=== PATIENT | female | born 1980 | race Two or more races ===

== ENCOUNTER 2019-04-10 19:33 | Emergency (ER) | payer MEDICAID ==
[~2019-04-10] VITALS: Ht 152.4 cm; Wt 116.6 kg
[2019-04-10 20:49] LABS: Urine WBC None Seen /hpf (0 - 5)
[2019-04-10 21:08] LABS: Urine Bacteria NONE SEEN /hpf (None Seen); Urine Blood Negative /uL (Negative); Urine Specific Gravity 1.016 (1.001-1.035)
[2019-04-10 22:36] LABS: Basophils # (auto) 0.1 uL; Basophils % (auto) 0.9 % (0.0-2.0); Eosinophils # (auto) 0.1 uL; Eosinophils % (auto) 0.8 % (0.0-7.0); Hematocrit 43.7 % (36.0-46.0); Hemoglobin 14.3 g/dL (12.2-16.2); Lymphocytes # (auto) 2.1 uL; Lymphocytes % (auto) 14.5 % (10.0-50.0); Mean Corpuscular Hemoglobin 28.3 pg (28.0-32.0); Mean Corpuscular Hgb Conc. 32.7 g/dL (32.0-36.0); Mean Corpuscular Volume 86.5 fL (80.0-100.0); Monocytes % (auto) 6.8 % (0.0-12.0); Neutrophils # (auto) 11.1 uL; Platelet Count (auto) 308 10^3/uL (140-450); Red Blood Cells 5.06 10^6/uL (4.0-5.20); Red Cell Distribution Width 18.6 % (11.8-14.3); White Blood Cell 14.4 10^3/uL (4.4-10.8)
[2019-04-10 22:54] LABS: Albumin 3.8 g/dL (3.4-5.0); BUN/Creatinine Ratio 15.1; Potassium 3.8 mmol/L (3.5-5.1)
[2019-04-10 22:55] LABS: Bilirubin, Total 0.4 mg/dL (0.2-1.0); Total Protein 8.1 g/dL (6.4-8.2)
[2019-04-11] MEDS ORDERED: IOHEXOL 300 MG/ML 100ML BOTTLE IJ ONE (03:49)
[2019-04-11 06:17] VITALS: BP 118/75
== END 2019-04-11 06:37 | disposition home or self-care (01) ==
LOC: ER 19:33
DX: K57.32 Diverticulitis of large intestine without perforation or abscess without bleeding (principal)
CPT/HCPCS: 36415; 74177; 80053; 81001; 81025; 85025; 99284; Q9967

== ENCOUNTER 2020-02-20 13:40 | Emergency (ER) | payer MEDICAID ==
[~2020-02-20] VITALS: Ht 152.4 cm; Wt 121.6 kg
[2020-02-20 14:01] VITALS: BP 135/87
[2020-02-20 14:28] LABS: Urine WBC None Seen /hpf (0 - 5)
[2020-02-20 14:40] LABS: Urine Bacteria NONE SEEN /hpf (None Seen); Urine Blood 3+ /uL (Negative)
[2020-02-20 14:42] LABS: Urine Specific Gravity 1.024 (1.001-1.035)
[2020-02-20] MEDS ORDERED: KETOROLAC TROMETH 60MG/2ML VIAL IM ONE (15:15)
== END 2020-02-20 16:19 | disposition home or self-care (01) ==
LOC: ER 13:40
DX: N30.00 Acute cystitis without hematuria (principal); K80.80 Other cholelithiasis without obstruction; K76.0 Fatty (change of) liver, not elsewhere classified
CPT/HCPCS: 74176; 81001; 96372; 99284; J1885

== ENCOUNTER 2020-04-16 02:29 | Emergency (ER) | payer MEDICAID ==
[~2020-04-16] VITALS: Ht 152.4 cm; Wt 120.2 kg
[2020-04-16 05:24] LABS: Basophils # (auto) 0 10 ^3/uL (0-0.2); Basophils % (auto) 0.8 % (0.0-2.0); Eosinophils # (auto) 0.2 10 ^3/uL (0-0.8); Eosinophils % (auto) 4.5 % (0.0-7.0); Hematocrit 39.9 % (36.0-46.0); Hemoglobin 12.6 g/dL (12.2-16.2); Lymphocytes # (auto) 0.6 10 ^3/uL (0.4-5.4); Lymphocytes % (auto) 11.8 % (10.0-50.0); Mean Corpuscular Hemoglobin 26.2 pg (28.0-32.0); Mean Corpuscular Hgb Conc. 31.7 g/dL (32.0-36.0); Mean Corpuscular Volume 82.6 fL (80.0-100.0); Monocytes # (auto) 0.6 10 ^3/uL (0-1.3); Monocytes % (auto) 12.5 % (0.0-12.0); Neutrophils # (auto) 3.5 10 ^3/uL (1.6-8.6); Neutrophils % (auto) 70.4 % (37.0-80.0); Nucleated Red Blood Cells % 0.1 %; Platelet Count (auto) 250 10^3/uL (140-450); Red Blood Cells 4.83 10^6/uL (4.0-5.20); Red Cell Distribution Width 18.4 % (11.8-14.3); White Blood Cell 4.9 10^3/uL (4.4-10.8)
[2020-04-16 05:25] LABS: Albumin 3.7 g/dL (3.4-5.0); Calcium 8.9 mg/dL (8.5-10.1); Potassium 3.7 mmol/L (3.5-5.1)
[2020-04-16 05:28] LABS: BUN/Creatinine Ratio 17.7; Bilirubin, Total 0.4 mg/dL (0.2-1.0); Total Protein 7.6 g/dL (6.4-8.2)
[2020-04-16 05:40] LABS: Urine Bacteria NONE SEEN /hpf (None Seen); Urine Blood 2+ /uL (Negative); Urine Mucus FEW (None Seen); Urine Specific Gravity 1.024 (1.001-1.035); Urine WBC 2 /hpf (0 - 5)
[2020-04-16] MEDS ORDERED: KETOROLAC TROMETH 60MG/2ML VIAL IM ONE (06:30)
[2020-04-16 09:00] VITALS: BP 141/63
== END 2020-04-16 09:11 | disposition home or self-care (01) ==
LOC: ER 02:29
DX: B34.9 Viral infection, unspecified (principal); M79.18 Myalgia, other site; Z20.828 Contact with and (suspected) exposure to other viral communicable diseases
CPT/HCPCS: 36415; 71045; 80053; 81001; 82728; 85025; 86850; 86900; 86901; 87070; 87426; 87804; 87880; 96372; 99284; C9803; J1885; U0003

== ENCOUNTER 2020-04-17 17:35 | Emergency (ER) | payer MEDICAID ==
[~2020-04-17] VITALS: Ht 152.4 cm; Wt 120.2 kg
[2020-04-17] MEDS ORDERED: ONDANSETRON HCL 4 MG/2 ML VIAL IV ONE (18:15)
[2020-04-17] MEDS ORDERED: MORPHINE SULFATE 4 MG/ML SYR/VIAL IV ONE (18:15)
[2020-04-17] MEDS ORDERED: SODIUM CHLORIDE 0.9% 500 ML IVB ONE (18:15)
[2020-04-17 18:20] LABS: Basophils # (auto) 0 10 ^3/uL (0-0.2); Eosinophils # (auto) 0 10 ^3/uL (0-0.8); Hematocrit 40.1 % (36.0-46.0); Monocytes # (auto) 0.5 10 ^3/uL (0-1.3); Nucleated Red Blood Cells % 0.1 %
[2020-04-17 18:22] LABS: Eosinophils % (auto) 0.8 % (0.0-7.0); Hemoglobin 12.8 g/dL (12.2-16.2); Lymphocytes # (auto) 1.1 10 ^3/uL (0.4-5.4); Lymphocytes % (auto) 23.8 % (10.0-50.0); Mean Corpuscular Hemoglobin 26.6 pg (28.0-32.0); Mean Corpuscular Hgb Conc. 31.9 g/dL (32.0-36.0); Mean Corpuscular Volume 83.2 fL (80.0-100.0); Monocytes % (auto) 10.6 % (0.0-12.0); Neutrophils # (auto) 2.9 10 ^3/uL (1.6-8.6); Neutrophils % (auto) 63.8 % (37.0-80.0); Platelet Count (auto) 242 10^3/uL (140-450); Red Blood Cells 4.82 10^6/uL (4.0-5.20); Red Cell Distribution Width 18.8 % (11.8-14.3); White Blood Cell 4.6 10^3/uL (4.4-10.8)
[2020-04-17 18:43] LABS: Albumin 3.9 g/dL (3.4-5.0); Calcium 8.9 mg/dL (8.5-10.1); Potassium 3.5 mmol/L (3.5-5.1)
[2020-04-17 18:58] LABS: BUN/Creatinine Ratio 14.6; Bilirubin, Total 0.3 mg/dL (0.2-1.0); Total Protein 7.8 g/dL (6.4-8.2)
[2020-04-17 20:59] LABS: Urine Bacteria FEW /hpf (None Seen); Urine Blood 1+ /uL (Negative); Urine Mucus FEW (None Seen); Urine Specific Gravity 1.018 (1.001-1.035); Urine WBC 1 /hpf (0 - 5)
[2020-04-17 23:30] VITALS: BP 159/95
== END 2020-04-18 00:30 | disposition home or self-care (01) ==
LOC: ER 17:35
DX: U07.1 COVID-19 (principal); R10.84 Generalized abdominal pain
CPT/HCPCS: 36415; 74176; 80053; 81001; 82150; 82728; 83605; 83690; 84702; 85025; 86141; 87040; 96361; 96374; 96375; 99285; J2270; J2405; J7030

== ENCOUNTER 2020-04-23 19:51 | Inpatient (IN) | payer MEDICAID ==
[~2020-04-23] VITALS: Ht 152.4 cm; Wt 119.0 kg
[2020-04-23] MEDS ORDERED: AZITHROMYCIN 500MG/ 250ML 250 ML IV ONE (22:15)
[2020-04-23] MEDS ORDERED: ALBUTEROL SULF 2.5 MG/0.5ML(0.5%) NEB SOLN NEB ONE (22:15)
[2020-04-23] MEDS ORDERED: IPRATROPIUM BROM 0.5 MG/2.5ML INH SOL NEB ONE (22:15)
[2020-04-23 23:00] LABS: Basophils # (auto) 0 10 ^3/uL (0-0.2); Basophils % (auto) 0.1 % (0.0-2.0); Eosinophils # (auto) 0 10 ^3/uL (0-0.8); Hematocrit 41.2 % (36.0-46.0); Hemoglobin 13.1 g/dL (12.2-16.2); Lymphocytes # (auto) 0.4 10 ^3/uL (0.4-5.4); Lymphocytes % (auto) 4.5 % (10.0-50.0); Mean Corpuscular Hemoglobin 26.3 pg (28.0-32.0); Mean Corpuscular Hgb Conc. 31.8 g/dL (32.0-36.0); Mean Corpuscular Volume 82.6 fL (80.0-100.0); Monocytes # (auto) 0.3 10 ^3/uL (0-1.3); Neutrophils # (auto) 8.5 10 ^3/uL (1.6-8.6); Neutrophils % (auto) 92.4 % (37.0-80.0); Nucleated Red Blood Cells % 0.1 %; Platelet Count (auto) 284 10^3/uL (140-450); Red Blood Cells 4.98 10^6/uL (4.0-5.20); Red Cell Distribution Width 19.1 % (11.8-14.3); White Blood Cell 9.2 10^3/uL (4.4-10.8)
[2020-04-23 23:01] LABS: Urine Bacteria FEW /hpf (None Seen); Urine Blood 2+ /uL (Negative); Urine WBC 1 /hpf (0 - 5)
[2020-04-23 23:21] LABS: INR 1.05 (0.9-1.15); Partial Thromboplastin Time 34.3 sec (23.0-31.2)
[2020-04-23 23:36] LABS: Alanine Aminotransferase 30 U/L (13-56); Alkaline Phosphatase 84 U/L (45-117); Anion Gap 10 (5-15); Aspartate Aminotransferase 32 U/L (15-37); BUN/Creatinine Ratio 12.5; Bilirubin, Total 0.3 mg/dL (0.2-1.0); Blood Urea Nitrogen 10 mg/dL (7-18); Calcium 8.9 mg/dL (8.5-10.1); Carbon Dioxide 24 mmol/L (21-32); Chloride 100 mmol/L (98-107); GFR African American 102 mL/min; GFR Non-African American 84 mL/min; Glucose 161 mg/dL (74-106); Potassium 3.5 mmol/L (3.5-5.1); Sodium 134 mmol/L (136-145); Total Protein 7.6 g/dL (6.4-8.2)
[2020-04-24] MEDS ORDERED: DOCUSATE SOD 100 MG CAP PO PRN (00:15)
[2020-04-24] MEDS ORDERED: MORPHINE SULF INJ 2 MG/ML SYRINGE 1ML IV PRN (00:15)
[2020-04-24] MEDS ORDERED: NITROGLYCERIN 0.4 MG SL TAB SL PRN (00:15)
[2020-04-24 01:29] VITALS: BP 132/88
[2020-04-24] MEDS: ALBUTEROL SULF HFA 90MCG INH 200DOSE IN SCH ×3 (06:15→22:14)
[2020-04-24] MEDS: SODIUM CHLOR 0.9% PF (SALINE LOCK) 10ML VIAL/SYR IV SCH ×3 (08:30→22:30)
[2020-04-24] MEDS: DexAMETHasone SOD PHOS 10MG/1ML VIAL INJ IV SCH (09:55)
[2020-04-24] MEDS: PANTOPRAZOLE 40 MG/10 ML VIAL INJ IV SCH (09:55)
[2020-04-24] MEDS: ASCORBIC ACID 1,000 MG TAB PO SCH (09:56)
[2020-04-24] MEDS: ZINC SULFATE 220mg CAP or TAB PO SCH (09:56)
[2020-04-24] MEDS: CHOLECALCIFEROL (VITD3) 2,000 UNIT CAP PO SCH (09:56)
[2020-04-24] MEDS: MULTIPLE VITAMIN TAB PO SCH (09:56)
[2020-04-24] MEDS: DOXYCYCLINE 100MG/250ML 250 ML IV SCH ×2 (09:56→23:06)
[2020-04-24] MEDS ORDERED: ENOXAPARIN SOD 40 MG/0.4 ML SYRINGE SC SCH (10:00)
[2020-04-24] MEDS: BUDESONIDE (INHALATION) 180 MCG IH IN SCH ×2 (10:09→22:14)
[2020-04-24] MEDS ORDERED: DEXTROSE (50%) 50ML SYRG IV PRN (10:15)
[2020-04-24] MEDS: ENOXAPARIN SOD 120 MG/0.8 ML SYRINGE SC SCH ×2 (10:56→22:59)
[2020-04-24 11:08] LABS: Basophils # (auto) 0 10 ^3/uL (0-0.2); Eosinophils # (auto) 0 10 ^3/uL (0-0.8); Lymphocytes # (auto) 0.8 10 ^3/uL (0.4-5.4); Mean Corpuscular Hemoglobin 26.1 pg (28.0-32.0); Monocytes # (auto) 0.5 10 ^3/uL (0-1.3); Monocytes % (auto) 4.5 % (0.0-12.0); Red Cell Distribution Width 18.6 % (11.8-14.3)
[2020-04-24 11:09] LABS: Hematocrit 40.8 % (36.0-46.0); Lymphocytes % (auto) 7.6 % (10.0-50.0); Mean Corpuscular Volume 81.7 fL (80.0-100.0); Neutrophils # (auto) 9.7 10 ^3/uL (1.6-8.6); Neutrophils % (auto) 87.9 % (37.0-80.0); Platelet Count (auto) 302 10^3/uL (140-450)
[2020-04-24 11:16] LABS: Alanine Aminotransferase 30 U/L (13-56); Albumin 2.9 g/dL (3.4-5.0); Anion Gap 7 (5-15); Aspartate Aminotransferase 30 U/L (15-37); Blood Urea Nitrogen 18 mg/dL (7-18); Calcium 9.2 mg/dL (8.5-10.1); Carbon Dioxide 27 mmol/L (21-32); Chloride 102 mmol/L (98-107); GFR African American 89 mL/min; GFR Non-African American 73 mL/min; Glucose 144 mg/dL (74-106); Magnesium 2.1 mg/dL (1.6-2.6); Potassium 3.9 mmol/L (3.5-5.1); Sodium 136 mmol/L (136-145); Total Protein 7.6 g/dL (6.4-8.2)
[2020-04-24 11:31] LABS: Alkaline Phosphatase 87 U/L (45-117); Bilirubin, Total 0.4 mg/dL (0.2-1.0); Lactate Dehydrogenase 370 U/L (84-246)
[2020-04-24 11:44] LABS: CRP High Sensitivity > 19 mg/dL (< 0.3)
[2020-04-24] MEDS: ACCU-CHEK COMFORT CURVE STRIP VI SCH ×3 (12:04→22:59)
[2020-04-24] MEDS: InsuLIN REG 1unit/0.01ml Soln (100units/ml) SC SCH ×3 (12:17→23:00)
[2020-04-24 21:36] VITALS: BP 116/74
[2020-04-24 22:00] VITALS: BP 133/88
[2020-04-24 23:00] VITALS: BP 135/86
[2020-04-25] MEDS: ACETAMINOPHEN 500 MG TAB PO PRN (01:00)
[2020-04-25] MEDS: ALBUTEROL SULF HFA 90MCG INH 200DOSE IN SCH ×3 (06:00→22:00)
[2020-04-25] MEDS: SODIUM CHLOR 0.9% PF (SALINE LOCK) 10ML VIAL/SYR IV SCH ×3 (06:54→22:30)
[2020-04-25] MEDS: InsuLIN REG 1unit/0.01ml Soln (100units/ml) SC SCH ×4 (07:00→22:31)
[2020-04-25] MEDS ORDERED: AZITHROMYCIN 500MG/ 250ML 250 ML IV ONE ×2 (07:36→07:45)
[2020-04-25] MEDS: ACCU-CHEK COMFORT CURVE STRIP VI SCH ×4 (07:38→22:22)
[2020-04-25] MEDS: ZINC SULFATE 220mg CAP or TAB PO SCH (07:56)
[2020-04-25] MEDS: PANTOPRAZOLE 40 MG/10 ML VIAL INJ IV SCH (07:56)
[2020-04-25] MEDS: DOXYCYCLINE 100MG/250ML 250 ML IV SCH ×3 (07:56→22:54)
[2020-04-25] MEDS: MULTIPLE VITAMIN TAB PO SCH (07:56)
[2020-04-25] MEDS: DexAMETHasone SOD PHOS 10MG/1ML VIAL INJ IV SCH (07:56)
[2020-04-25] MEDS: ASCORBIC ACID 1,000 MG TAB PO SCH (07:56)
[2020-04-25] MEDS: CHOLECALCIFEROL (VITD3) 2,000 UNIT CAP PO SCH (07:56)
[2020-04-25] MEDS: ENOXAPARIN SOD 120 MG/0.8 ML SYRINGE SC SCH ×2 (07:57→22:31)
[2020-04-25 09:17] LABS: Basophils # (auto) 0 10 ^3/uL (0-0.2); Eosinophils # (auto) 0 10 ^3/uL (0-0.8); Hemoglobin 13.3 g/dL (12.2-16.2); Lymphocytes # (auto) 0.6 10 ^3/uL (0.4-5.4); Mean Corpuscular Hemoglobin 26.5 pg (28.0-32.0); Red Cell Distribution Width 18.7 % (11.8-14.3)
[2020-04-25 09:18] LABS: Basophils % (auto) 0.1 % (0.0-2.0); Lymphocytes % (auto) 4.8 % (10.0-50.0); Mean Corpuscular Hgb Conc. 32.4 g/dL (32.0-36.0); Monocytes # (auto) 0.5 10 ^3/uL (0-1.3); Monocytes % (auto) 3.6 % (0.0-12.0); Neutrophils # (auto) 11.7 10 ^3/uL (1.6-8.6); Neutrophils % (auto) 91.5 % (37.0-80.0); Platelet Count (auto) 325 10^3/uL (140-450); White Blood Cell 12.8 10^3/uL (4.4-10.8)
[2020-04-25] MEDS ORDERED: LORazepam 2MG/ML-1ML VIAL IV ONE (09:30)
[2020-04-25 09:46] LABS: Albumin 2.7 g/dL (3.4-5.0); BUN/Creatinine Ratio 20.5; Bilirubin, Total 0.6 mg/dL (0.2-1.0); Potassium 3.6 mmol/L (3.5-5.1); Total Protein 7.6 g/dL (6.4-8.2)
[2020-04-25] MEDS: BUDESONIDE (INHALATION) 180 MCG IH IN SCH ×2 (10:00→22:00)
[2020-04-25] MEDS ORDERED: REMDESIVIR 200 MG in NS 210ml LOADING DOSE ADULT IV ONE ×2 (10:00→17:00)
[2020-04-25] MEDS: ALPRAZolam 0.5 MG TAB PO PRN (13:26)
[2020-04-25 15:25] VITALS: BP 116/71
[2020-04-25 18:50] VITALS: BP 106/63
[2020-04-25 22:30] VITALS: BP 107/59
[2020-04-26] VITALS (11 sets, daily range): BP systolic 90–144; BP diastolic 54–76
[2020-04-26] MEDS: ALPRAZolam 0.5 MG TAB PO PRN ×3 (01:21→20:33)
[2020-04-26] MEDS: ONDANSETRON HCL 4 MG/2 ML VIAL IV PRN (01:22)
[2020-04-26 05:04] LABS: Potassium 3.6 mmol/L (3.5-5.1)
[2020-04-26 05:12] LABS: BUN/Creatinine Ratio 33.3; Calcium 8.8 mg/dL (8.5-10.1)
[2020-04-26] MEDS: FUROSEMIDE 40 MG/4 ML VIAL IV SCH ×2 (06:01→17:13)
[2020-04-26] MEDS: SODIUM CHLOR 0.9% PF (SALINE LOCK) 10ML VIAL/SYR IV SCH ×3 (06:01→20:30)
[2020-04-26] MEDS: ACCU-CHEK COMFORT CURVE STRIP VI SCH ×4 (06:01→20:32)
[2020-04-26] MEDS: InsuLIN REG 1unit/0.01ml Soln (100units/ml) SC SCH ×4 (06:01→20:32)
[2020-04-26] MEDS: ALBUTEROL SULF HFA 90MCG INH 200DOSE IN SCH ×3 (06:11→22:15)
[2020-04-26] MEDS: BUDESONIDE (INHALATION) 180 MCG IH IN SCH ×2 (06:11→22:16)
[2020-04-26] MEDS: DOXYCYCLINE 100MG/250ML 250 ML IV SCH ×2 (09:38→20:32)
[2020-04-26] MEDS: ZINC SULFATE 220mg CAP or TAB PO SCH (09:39)
[2020-04-26] MEDS: MULTIPLE VITAMIN TAB PO SCH (09:39)
[2020-04-26] MEDS: CHOLECALCIFEROL (VITD3) 2,000 UNIT CAP PO SCH (09:39)
[2020-04-26] MEDS: DexAMETHasone SOD PHOS 10MG/1ML VIAL INJ IV SCH (09:40)
[2020-04-26] MEDS: ASCORBIC ACID 1,000 MG TAB PO SCH (09:40)
[2020-04-26] MEDS: ENOXAPARIN SOD 120 MG/0.8 ML SYRINGE SC SCH ×2 (09:40→20:32)
[2020-04-26] MEDS: PANTOPRAZOLE 40 MG/10 ML VIAL INJ IV SCH (09:41)
[2020-04-26] MEDS: ACETAMINOPHEN 500 MG TAB PO PRN (15:09)
[2020-04-26] MEDS: REMDESIVIR 100mg in NS 230ml DAILYx4DAYS (NO VENT) IV SCH (17:00)
[2020-04-26] MEDS ORDERED: REMDESIVIR 100mg in NS 230ml DAILYx4DAYS (NO VENT) IV SCH (17:00)
[2020-04-27] VITALS (12 sets, daily range): BP systolic 100–115; BP diastolic 50–74
[2020-04-27] MEDS: ACCU-CHEK COMFORT CURVE STRIP VI SCH ×4 (05:10→21:37)
[2020-04-27] MEDS: SODIUM CHLOR 0.9% PF (SALINE LOCK) 10ML VIAL/SYR IV SCH ×3 (05:10→21:36)
[2020-04-27] MEDS: InsuLIN REG 1unit/0.01ml Soln (100units/ml) SC SCH ×4 (05:10→21:37)
[2020-04-27] MEDS: FUROSEMIDE 40 MG/4 ML VIAL IV SCH ×2 (05:11→18:16)
[2020-04-27 06:08] LABS: Potassium 3.4 mmol/L (3.5-5.1)
[2020-04-27 06:16] LABS: Albumin 2.5 g/dL (3.4-5.0); BUN/Creatinine Ratio 37.7; Bilirubin, Total 0.4 mg/dL (0.2-1.0); Calcium 8.8 mg/dL (8.5-10.1)
[2020-04-27] MEDS: BUDESONIDE (INHALATION) 180 MCG IH IN SCH ×2 (06:17→19:03)
[2020-04-27] MEDS: ALBUTEROL SULF HFA 90MCG INH 200DOSE IN SCH ×3 (06:17→19:03)
[2020-04-27] MEDS: DexAMETHasone SOD PHOS 10MG/1ML VIAL INJ IV SCH (09:23)
[2020-04-27] MEDS: MULTIPLE VITAMIN TAB PO SCH (09:23)
[2020-04-27] MEDS: PANTOPRAZOLE 40 MG/10 ML VIAL INJ IV SCH (09:23)
[2020-04-27] MEDS: ZINC SULFATE 220mg CAP or TAB PO SCH (09:23)
[2020-04-27] MEDS: ENOXAPARIN SOD 120 MG/0.8 ML SYRINGE SC SCH ×2 (09:24→21:37)
[2020-04-27] MEDS: ASCORBIC ACID 1,000 MG TAB PO SCH (09:24)
[2020-04-27] MEDS: CHOLECALCIFEROL (VITD3) 2,000 UNIT CAP PO SCH (09:24)
[2020-04-27] MEDS: DOXYCYCLINE 100MG/250ML 250 ML IV SCH ×2 (10:10→21:37)
[2020-04-27] MEDS ORDERED: POTASSIUM CHL 20MEQ/100ML 100 ML IV ONE (15:30)
[2020-04-27] MEDS: REMDESIVIR 100mg in NS 230ml DAILYx4DAYS (NO VENT) IV SCH (16:42)
[2020-04-28] VITALS (12 sets, daily range): BP systolic 96–116; BP diastolic 50–71
[2020-04-28 04:04] LABS: Basophils # (auto) 0 10 ^3/uL (0-0.2); Eosinophils # (auto) 0 10 ^3/uL (0-0.8); Lymphocytes # (auto) 0.9 10 ^3/uL (0.4-5.4); Lymphocytes % (auto) 8.7 % (10.0-50.0); Mean Corpuscular Hgb Conc. 31.1 g/dL (32.0-36.0)
[2020-04-28 04:06] LABS: Basophils % (auto) 0.1 % (0.0-2.0); Hematocrit 40.8 % (36.0-46.0); Hemoglobin 12.7 g/dL (12.2-16.2); Mean Corpuscular Hemoglobin 25.9 pg (28.0-32.0); Mean Corpuscular Volume 83.1 fL (80.0-100.0); Monocytes # (auto) 0.8 10 ^3/uL (0-1.3); Monocytes % (auto) 7.9 % (0.0-12.0); Neutrophils # (auto) 8.5 10 ^3/uL (1.6-8.6); Neutrophils % (auto) 83.3 % (37.0-80.0); Platelet Count (auto) 374 10^3/uL (140-450); Red Blood Cells 4.91 10^6/uL (4.0-5.20); Red Cell Distribution Width 18.8 % (11.8-14.3); White Blood Cell 10.2 10^3/uL (4.4-10.8)
[2020-04-28 05:21] LABS: Albumin 2.5 g/dL (3.4-5.0); BUN/Creatinine Ratio 37.5; Bilirubin, Total 0.4 mg/dL (0.2-1.0); CRP High Sensitivity 7.82 mg/dL (< 0.3); Calcium 8.7 mg/dL (8.5-10.1); Potassium 3.4 mmol/L (3.5-5.1); Total Protein 7.3 g/dL (6.4-8.2)
[2020-04-28] MEDS: ALBUTEROL SULF HFA 90MCG INH 200DOSE IN SCH ×3 (05:39→19:48)
[2020-04-28] MEDS: BUDESONIDE (INHALATION) 180 MCG IH IN SCH ×2 (05:39→19:48)
[2020-04-28] MEDS: SODIUM CHLOR 0.9% PF (SALINE LOCK) 10ML VIAL/SYR IV SCH ×3 (06:21→21:24)
[2020-04-28] MEDS: InsuLIN REG 1unit/0.01ml Soln (100units/ml) SC SCH ×4 (06:22→22:06)
[2020-04-28] MEDS: ACCU-CHEK COMFORT CURVE STRIP VI SCH ×4 (06:22→21:24)
[2020-04-28] MEDS ORDERED: POTASSIUM CHL 20 Meq TABLET PO ONE (09:45)
[2020-04-28] MEDS: PANTOPRAZOLE 40 MG/10 ML VIAL INJ IV SCH (10:54)
[2020-04-28] MEDS: DOXYCYCLINE 100MG/250ML 250 ML IV SCH ×2 (10:55→21:24)
[2020-04-28] MEDS: DexAMETHasone SOD PHOS 10MG/1ML VIAL INJ IV SCH (10:55)
[2020-04-28] MEDS: ASCORBIC ACID 1,000 MG TAB PO SCH (11:37)
[2020-04-28] MEDS: CHOLECALCIFEROL (VITD3) 2,000 UNIT CAP PO SCH (11:37)
[2020-04-28] MEDS: ZINC SULFATE 220mg CAP or TAB PO SCH (11:37)
[2020-04-28] MEDS: MULTIPLE VITAMIN TAB PO SCH (11:38)
[2020-04-28] MEDS: ENOXAPARIN SOD 120 MG/0.8 ML SYRINGE SC SCH ×2 (11:38→21:24)
[2020-04-28] MEDS: ALPRAZolam 0.5 MG TAB PO PRN (11:42)
[2020-04-28] MEDS: Ensure HIGH Protein Chocolate 8oz Bottle PO SCH ×2 (12:00→18:00)
[2020-04-28] MEDS: REMDESIVIR 100mg in NS 230ml DAILYx4DAYS (NO VENT) IV SCH (17:00)
[2020-04-28] MEDS: POTASSIUM CHL 20MEQ/100ML 100 ML IV SCH ×2 (18:43→20:20)
[2020-04-29] VITALS (15 sets, daily range): BP systolic 94–114; BP diastolic 52–72
[2020-04-29] MEDS: ALPRAZolam 0.5 MG TAB PO PRN (00:53)
[2020-04-29] MEDS: ONDANSETRON HCL 4 MG/2 ML VIAL IV PRN (00:54)
[2020-04-29 03:27] LABS: Basophils # (auto) 0 10 ^3/uL (0-0.2); Eosinophils # (auto) 0 10 ^3/uL (0-0.8); Eosinophils % (auto) 0.1 % (0.0-7.0); Hemoglobin 13.3 g/dL (12.2-16.2); Lymphocytes # (auto) 0.8 10 ^3/uL (0.4-5.4); Monocytes # (auto) 0.8 10 ^3/uL (0-1.3)
[2020-04-29 03:29] LABS: Hematocrit 42.6 % (36.0-46.0); Lymphocytes % (auto) 7.3 % (10.0-50.0); Mean Corpuscular Hemoglobin 25.8 pg (28.0-32.0); Mean Corpuscular Hgb Conc. 31.2 g/dL (32.0-36.0); Mean Corpuscular Volume 82.5 fL (80.0-100.0); Monocytes % (auto) 7.2 % (0.0-12.0); Neutrophils # (auto) 9.8 10 ^3/uL (1.6-8.6); Neutrophils % (auto) 85.4 % (37.0-80.0); Platelet Count (auto) 378 10^3/uL (140-450); Red Blood Cells 5.17 10^6/uL (4.0-5.20); Red Cell Distribution Width 18.3 % (11.8-14.3); White Blood Cell 11.5 10^3/uL (4.4-10.8)
[2020-04-29 03:43] LABS: Albumin 2.5 g/dL (3.4-5.0); Calcium 8.9 mg/dL (8.5-10.1); Potassium 4.2 mmol/L (3.5-5.1)
[2020-04-29 03:47] LABS: BUN/Creatinine Ratio 30.9; Bilirubin, Total 0.5 mg/dL (0.2-1.0); Total Protein 7.1 g/dL (6.4-8.2)
[2020-04-29] MEDS: SODIUM CHLOR 0.9% PF (SALINE LOCK) 10ML VIAL/SYR IV SCH ×3 (05:28→22:02)
[2020-04-29] MEDS: ALBUTEROL SULF HFA 90MCG INH 200DOSE IN SCH ×3 (06:00→22:12)
[2020-04-29] MEDS: ACCU-CHEK COMFORT CURVE STRIP VI SCH ×4 (06:07→22:03)
[2020-04-29] MEDS: InsuLIN REG 1unit/0.01ml Soln (100units/ml) SC SCH ×4 (06:07→22:04)
[2020-04-29] MEDS: Ensure HIGH Protein Chocolate 8oz Bottle PO SCH ×3 (08:00→18:00)
[2020-04-29] MEDS ORDERED: guaiFENesin-DM 100/10mg/5ml SYR PO PRN (09:45)
[2020-04-29] MEDS: BUDESONIDE (INHALATION) 180 MCG IH IN SCH ×2 (10:00→22:12)
[2020-04-29] MEDS: ZINC SULFATE 220mg CAP or TAB PO SCH (10:40)
[2020-04-29] MEDS: ENOXAPARIN SOD 120 MG/0.8 ML SYRINGE SC SCH ×2 (10:40→22:03)
[2020-04-29] MEDS: PANTOPRAZOLE 40 MG/10 ML VIAL INJ IV SCH (10:40)
[2020-04-29] MEDS: ASCORBIC ACID 1,000 MG TAB PO SCH (10:40)
[2020-04-29] MEDS: CHOLECALCIFEROL (VITD3) 2,000 UNIT CAP PO SCH (10:40)
[2020-04-29] MEDS: DexAMETHasone SOD PHOS 10MG/1ML VIAL INJ IV SCH (10:40)
[2020-04-29] MEDS: MULTIPLE VITAMIN TAB PO SCH (10:40)
[2020-04-29 11:23] LABS: Magnesium 2.7 mg/dL (1.6-2.6); Phosphorus 4.2 mg/dL (2.5-4.90)
[2020-04-29 11:32] LABS: CRP High Sensitivity 10.2 mg/dL (< 0.3)
[2020-04-29] MEDS: REMDESIVIR 100mg in NS 230ml DAILYx4DAYS (NO VENT) IV SCH (16:34)
[2020-04-30] VITALS (12 sets, daily range): BP systolic 98–119; BP diastolic 51–75
[2020-04-30] MEDS: ACCU-CHEK COMFORT CURVE STRIP VI SCH ×4 (05:52→22:22)
[2020-04-30] MEDS: SODIUM CHLOR 0.9% PF (SALINE LOCK) 10ML VIAL/SYR IV SCH ×3 (05:52→22:22)
[2020-04-30] MEDS: InsuLIN REG 1unit/0.01ml Soln (100units/ml) SC SCH ×4 (05:52→22:23)
[2020-04-30] MEDS: ALBUTEROL SULF 2.5 MG/0.5ML(0.5%) NEB SOLN NEB SCH ×3 (06:00→22:40)
[2020-04-30] MEDS: BUDESONIDE (INHALATION) 0.5 MG/2 ML NEB NEB SCH ×2 (07:54→22:40)
[2020-04-30] MEDS: Ensure HIGH Protein Chocolate 8oz Bottle PO SCH ×3 (08:00→17:35)
[2020-04-30] MEDS: DexAMETHasone SOD PHOS 10MG/1ML VIAL INJ IV SCH (10:30)
[2020-04-30] MEDS: MULTIPLE VITAMIN TAB PO SCH (10:31)
[2020-04-30] MEDS: PANTOPRAZOLE 40 MG/10 ML VIAL INJ IV SCH (10:31)
[2020-04-30] MEDS: ZINC SULFATE 220mg CAP or TAB PO SCH (10:31)
[2020-04-30] MEDS: CHOLECALCIFEROL (VITD3) 2,000 UNIT CAP PO SCH (10:32)
[2020-04-30] MEDS: ENOXAPARIN SOD 120 MG/0.8 ML SYRINGE SC SCH ×2 (10:32→22:22)
[2020-04-30] MEDS: ASCORBIC ACID 1,000 MG TAB PO SCH (10:32)
[2020-04-30 10:40] LABS: Basophils # (auto) 0 10 ^3/uL (0-0.2); Eosinophils # (auto) 0 10 ^3/uL (0-0.8); Eosinophils % (auto) 0.3 % (0.0-7.0); Hematocrit 40.8 % (36.0-46.0); Hemoglobin 12.6 g/dL (12.2-16.2); Lymphocytes # (auto) 0.8 10 ^3/uL (0.4-5.4); Lymphocytes % (auto) 5.8 % (10.0-50.0); Mean Corpuscular Hemoglobin 25.7 pg (28.0-32.0); Mean Corpuscular Hgb Conc. 30.9 g/dL (32.0-36.0); Mean Corpuscular Volume 83.3 fL (80.0-100.0); Monocytes # (auto) 0.6 10 ^3/uL (0-1.3); Neutrophils # (auto) 12.6 10 ^3/uL (1.6-8.6); Neutrophils % (auto) 89.9 % (37.0-80.0); Platelet Count (auto) 326 10^3/uL (140-450); White Blood Cell 14.1 10^3/uL (4.4-10.8)
[2020-04-30 11:09] LABS: Albumin 2.3 g/dL (3.4-5.0); Calcium 8.9 mg/dL (8.5-10.1)
[2020-04-30 11:32] LABS: BUN/Creatinine Ratio 33.3; Bilirubin, Total 0.6 mg/dL (0.2-1.0); CRP High Sensitivity 14.3 mg/dL (< 0.3)
[2020-04-30] MEDS: ALPRAZolam 0.5 MG TAB PO PRN (14:44)
[2020-05-01] VITALS (12 sets, daily range): BP systolic 95–110; BP diastolic 41–69
[2020-05-01] MEDS: ALPRAZolam 0.5 MG TAB PO PRN ×2 (03:28→23:34)
[2020-05-01] MEDS: SODIUM CHLOR 0.9% PF (SALINE LOCK) 10ML VIAL/SYR IV SCH ×3 (05:38→21:50)
[2020-05-01] MEDS: ACCU-CHEK COMFORT CURVE STRIP VI SCH ×4 (06:33→22:38)
[2020-05-01] MEDS: InsuLIN REG 1unit/0.01ml Soln (100units/ml) SC SCH ×4 (06:34→22:00)
[2020-05-01] MEDS: BUDESONIDE (INHALATION) 0.5 MG/2 ML NEB NEB SCH ×2 (07:12→22:28)
[2020-05-01] MEDS: ALBUTEROL SULF 2.5 MG/0.5ML(0.5%) NEB SOLN NEB SCH ×3 (07:13→22:28)
[2020-05-01] MEDS: Ensure HIGH Protein Chocolate 8oz Bottle PO SCH ×3 (08:30→18:00)
[2020-05-01] MEDS: ACETAMINOPHEN 500 MG TAB PO PRN (08:38)
[2020-05-01] MEDS: ASCORBIC ACID 1,000 MG TAB PO SCH (10:30)
[2020-05-01] MEDS: ENOXAPARIN SOD 120 MG/0.8 ML SYRINGE SC SCH ×2 (10:30→21:51)
[2020-05-01] MEDS: ZINC SULFATE 220mg CAP or TAB PO SCH (10:30)
[2020-05-01] MEDS: DexAMETHasone SOD PHOS 10MG/1ML VIAL INJ IV SCH (10:30)
[2020-05-01] MEDS: PANTOPRAZOLE 40 MG/10 ML VIAL INJ IV SCH (10:30)
[2020-05-01] MEDS: MULTIPLE VITAMIN TAB PO SCH (10:30)
[2020-05-01] MEDS: CHOLECALCIFEROL (VITD3) 2,000 UNIT CAP PO SCH (10:30)
[2020-05-02] VITALS (12 sets, daily range): BP systolic 95–118; BP diastolic 48–70
[2020-05-02 04:27] LABS: Basophils # (auto) 0 10 ^3/uL (0-0.2); Basophils % (auto) 0.1 % (0.0-2.0); Eosinophils # (auto) 0.1 10 ^3/uL (0-0.8); Eosinophils % (auto) 0.5 % (0.0-7.0); Hematocrit 40.7 % (36.0-46.0); Hemoglobin 12.6 g/dL (12.2-16.2); Lymphocytes # (auto) 0.6 10 ^3/uL (0.4-5.4); Lymphocytes % (auto) 4.6 % (10.0-50.0); Mean Corpuscular Hemoglobin 25.9 pg (28.0-32.0); Mean Corpuscular Hgb Conc. 31.1 g/dL (32.0-36.0); Mean Corpuscular Volume 83.4 fL (80.0-100.0); Monocytes # (auto) 0.3 10 ^3/uL (0-1.3); Monocytes % (auto) 2.6 % (0.0-12.0); Neutrophils # (auto) 11.4 10 ^3/uL (1.6-8.6); Neutrophils % (auto) 92.2 % (37.0-80.0); Nucleated Red Blood Cells % 0.1 %; Platelet Count (auto) 333 10^3/uL (140-450); Red Blood Cells 4.87 10^6/uL (4.0-5.20); Red Cell Distribution Width 18.9 % (11.8-14.3); White Blood Cell 12.4 10^3/uL (4.4-10.8)
[2020-05-02 04:48] LABS: Albumin 2.2 g/dL (3.4-5.0); BUN/Creatinine Ratio 27.4; Calcium 8.9 mg/dL (8.5-10.1); Magnesium 2.8 mg/dL (1.6-2.6); Potassium 4.3 mmol/L (3.5-5.1)
[2020-05-02 05:00] LABS: Bilirubin, Total 0.5 mg/dL (0.2-1.0); CRP High Sensitivity 16.6 mg/dL (< 0.3); Total Protein 7.1 g/dL (6.4-8.2)
[2020-05-02] MEDS: SODIUM CHLOR 0.9% PF (SALINE LOCK) 10ML VIAL/SYR IV SCH ×3 (05:56→22:02)
[2020-05-02] MEDS: ALBUTEROL SULF 2.5 MG/0.5ML(0.5%) NEB SOLN NEB SCH ×3 (06:06→21:00)
[2020-05-02] MEDS: BUDESONIDE (INHALATION) 0.5 MG/2 ML NEB NEB SCH ×2 (06:06→21:00)
[2020-05-02] MEDS: InsuLIN REG 1unit/0.01ml Soln (100units/ml) SC SCH ×3 (07:00→17:00)
[2020-05-02] MEDS: ACCU-CHEK COMFORT CURVE STRIP VI SCH ×3 (07:13→17:00)
[2020-05-02] MEDS: Ensure HIGH Protein Chocolate 8oz Bottle PO SCH ×3 (07:54→17:51)
[2020-05-02] MEDS: DexAMETHasone SOD PHOS 10MG/1ML VIAL INJ IV SCH (09:23)
[2020-05-02] MEDS: ALPRAZolam 0.5 MG TAB PO PRN (09:23)
[2020-05-02] MEDS: ZINC SULFATE 220mg CAP or TAB PO SCH (09:24)
[2020-05-02] MEDS: MULTIPLE VITAMIN TAB PO SCH (09:24)
[2020-05-02] MEDS: CHOLECALCIFEROL (VITD3) 2,000 UNIT CAP PO SCH (09:24)
[2020-05-02] MEDS: ASCORBIC ACID 1,000 MG TAB PO SCH (09:24)
[2020-05-02] MEDS: ENOXAPARIN SOD 120 MG/0.8 ML SYRINGE SC SCH ×2 (09:24→22:02)
[2020-05-02] MEDS: PANTOPRAZOLE 40 MG/10 ML VIAL INJ IV SCH (09:24)
[2020-05-02] MEDS ORDERED: PPN PER PHARMACY 0 ML IV SCH (19:15)
[2020-05-02] MEDS ORDERED: DEXTROSE (50%) 50ML SYRG IV SCH (20:00)
[2020-05-02] MEDS ORDERED: AMINO ACID INFUSION IN D5W 2,000 ML IV NR (20:00)
[2020-05-03] VITALS (10 sets, daily range): BP systolic 96–115; BP diastolic 63–76
[2020-05-03] MEDS: ACCU-CHEK COMFORT CURVE STRIP VI SCH ×5 (00:15→23:57)
[2020-05-03] MEDS: InsuLIN REG 1unit/0.01ml Soln (100units/ml) SC SCH ×5 (00:16→23:57)
[2020-05-03 04:53] LABS: Basophils # (auto) 0 10 ^3/uL (0-0.2); Eosinophils # (auto) 0 10 ^3/uL (0-0.8); Eosinophils % (auto) 0.4 % (0.0-7.0); Hematocrit 43.4 % (36.0-46.0); Hemoglobin 13.4 g/dL (12.2-16.2); Lymphocytes # (auto) 0.6 10 ^3/uL (0.4-5.4); Lymphocytes % (auto) 5.1 % (10.0-50.0); Mean Corpuscular Hemoglobin 25.8 pg (28.0-32.0); Mean Corpuscular Hgb Conc. 30.9 g/dL (32.0-36.0); Mean Corpuscular Volume 83.5 fL (80.0-100.0); Monocytes # (auto) 0.3 10 ^3/uL (0-1.3); Monocytes % (auto) 2.5 % (0.0-12.0); Neutrophils # (auto) 10.6 10 ^3/uL (1.6-8.6); Nucleated Red Blood Cells % 0.1 %; Platelet Count (auto) 313 10^3/uL (140-450); Red Cell Distribution Width 19.1 % (11.8-14.3); White Blood Cell 11.5 10^3/uL (4.4-10.8)
[2020-05-03 05:20] LABS: Potassium 4.5 mmol/L (3.5-5.1)
[2020-05-03 05:35] LABS: Albumin 2.3 g/dL (3.4-5.0); BUN/Creatinine Ratio 36.2; Bilirubin, Total 0.4 mg/dL (0.2-1.0); CRP High Sensitivity 14.2 mg/dL (< 0.3); Calcium 8.9 mg/dL (8.5-10.1); Magnesium 3.1 mg/dL (1.6-2.6); Phosphorus 3.5 mg/dL (2.5-4.90); Pre Albumin 17.8 mg/dL (20.0-40.0); Total Protein 7.2 g/dL (6.4-8.2)
[2020-05-03] MEDS: BUDESONIDE (INHALATION) 0.5 MG/2 ML NEB NEB SCH ×2 (06:37→22:02)
[2020-05-03] MEDS: ALBUTEROL SULF 2.5 MG/0.5ML(0.5%) NEB SOLN NEB SCH ×3 (06:37→22:02)
[2020-05-03] MEDS: SODIUM CHLOR 0.9% PF (SALINE LOCK) 10ML VIAL/SYR IV SCH ×3 (06:51→22:08)
[2020-05-03] MEDS: Ensure HIGH Protein Chocolate 8oz Bottle PO SCH (08:00)
[2020-05-03] MEDS: CHOLECALCIFEROL (VITD3) 2,000 UNIT CAP PO SCH (10:00)
[2020-05-03] MEDS: MULTIPLE VITAMIN TAB PO SCH (10:40)
[2020-05-03] MEDS: ZINC SULFATE 220mg CAP or TAB PO SCH (10:40)
[2020-05-03] MEDS: ENOXAPARIN SOD 120 MG/0.8 ML SYRINGE SC SCH ×2 (10:40→22:08)
[2020-05-03] MEDS: AZITHROMYCIN 500MG/ 250ML 250 ML IV SCH (10:40)
[2020-05-03] MEDS: PANTOPRAZOLE 40 MG/10 ML VIAL INJ IV SCH (10:40)
[2020-05-03] MEDS: ASCORBIC ACID 1,000 MG TAB PO SCH (10:40)
[2020-05-03] MEDS: DexAMETHasone SOD PHOS 10MG/1ML VIAL INJ IV SCH (10:40)
[2020-05-03] MEDS: guaiFENesin 200 MG/10 ML UD PO PRN ×2 (13:10→22:07)
[2020-05-03] MEDS: ENSURE CLEAR Mixed Berry 8oz Carton PO SCH (18:53)
[2020-05-03] MEDS ORDERED: PPN PER PHARMACY IV NR ×6 (20:00)
[2020-05-03] MEDS: ALPRAZolam 0.5 MG TAB PO PRN (20:03)
[2020-05-04] VITALS (10 sets, daily range): BP systolic 105–132; BP diastolic 61–82
[2020-05-04 03:19] LABS: Basophils # (auto) 0 10 ^3/uL (0-0.2); Basophils % (auto) 0.4 % (0.0-2.0); Eosinophils # (auto) 0 10 ^3/uL (0-0.8); Eosinophils % (auto) 0.1 % (0.0-7.0); Hematocrit 42.5 % (36.0-46.0); Hemoglobin 13.3 g/dL (12.2-16.2); Lymphocytes # (auto) 0.6 10 ^3/uL (0.4-5.4); Lymphocytes % (auto) 4.5 % (10.0-50.0); Mean Corpuscular Hgb Conc. 31.3 g/dL (32.0-36.0); Mean Corpuscular Volume 83.2 fL (80.0-100.0); Monocytes # (auto) 0.4 10 ^3/uL (0-1.3); Monocytes % (auto) 2.9 % (0.0-12.0); Neutrophils % (auto) 92.1 % (37.0-80.0); Nucleated Red Blood Cells % 0.1 %; Platelet Count (auto) 306 10^3/uL (140-450); Red Blood Cells 5.11 10^6/uL (4.0-5.20); Red Cell Distribution Width 18.9 % (11.8-14.3)
[2020-05-04 03:44] LABS: Magnesium 2.7 mg/dL (1.6-2.6); Potassium 4.2 mmol/L (3.5-5.1)
[2020-05-04 03:55] LABS: Albumin 2.3 g/dL (3.4-5.0); BUN/Creatinine Ratio 38.2; Bilirubin, Total 0.4 mg/dL (0.2-1.0); CRP High Sensitivity 9.49 mg/dL (< 0.3); Calcium 8.8 mg/dL (8.5-10.1); Phosphorus 3.6 mg/dL (2.5-4.90)
[2020-05-04] MEDS: SODIUM CHLOR 0.9% PF (SALINE LOCK) 10ML VIAL/SYR IV SCH ×3 (05:33→21:47)
[2020-05-04] MEDS: ACCU-CHEK COMFORT CURVE STRIP VI SCH ×3 (05:34→18:13)
[2020-05-04] MEDS: InsuLIN REG 1unit/0.01ml Soln (100units/ml) SC SCH ×3 (05:59→18:13)
[2020-05-04] MEDS: BUDESONIDE (INHALATION) 0.5 MG/2 ML NEB NEB SCH ×2 (06:07→22:01)
[2020-05-04] MEDS: ALBUTEROL SULF 2.5 MG/0.5ML(0.5%) NEB SOLN NEB SCH ×3 (06:07→22:01)
[2020-05-04] MEDS: ENSURE CLEAR Mixed Berry 8oz Carton PO SCH ×3 (08:00→18:12)
[2020-05-04] MEDS: ALPRAZolam 0.5 MG TAB PO PRN (08:17)
[2020-05-04] MEDS: ENOXAPARIN SOD 120 MG/0.8 ML SYRINGE SC SCH ×2 (09:30→21:47)
[2020-05-04] MEDS: PANTOPRAZOLE 40 MG/10 ML VIAL INJ IV SCH (09:30)
[2020-05-04] MEDS: DexAMETHasone SOD PHOS 10MG/1ML VIAL INJ IV SCH (09:30)
[2020-05-04] MEDS: ZINC SULFATE 220mg CAP or TAB PO SCH (09:30)
[2020-05-04] MEDS: MULTIPLE VITAMIN TAB PO SCH (09:30)
[2020-05-04] MEDS: ASCORBIC ACID 1,000 MG TAB PO SCH (09:30)
[2020-05-04] MEDS: CHOLECALCIFEROL (VITD3) 2,000 UNIT CAP PO SCH (09:31)
[2020-05-04] MEDS: AZITHROMYCIN 500MG/ 250ML 250 ML IV SCH (09:31)
[2020-05-04] MEDS: FUROSEMIDE 40 MG/4 ML VIAL IV SCH (18:12)
[2020-05-04] MEDS ORDERED: PPN PER PHARMACY IV NR ×8 (20:00)
[2020-05-05] VITALS (10 sets, daily range): BP systolic 92–127; BP diastolic 63–81
[2020-05-05] MEDS: ACCU-CHEK COMFORT CURVE STRIP VI SCH ×5 (00:43→23:51)
[2020-05-05] MEDS: InsuLIN REG 1unit/0.01ml Soln (100units/ml) SC SCH ×5 (00:43→23:52)
[2020-05-05 03:30] LABS: Basophils # (auto) 0 10 ^3/uL (0-0.2); Eosinophils # (auto) 0 10 ^3/uL (0-0.8); Eosinophils % (auto) 0.1 % (0.0-7.0); Hematocrit 43.9 % (36.0-46.0); Red Cell Distribution Width 18.9 % (11.8-14.3)
[2020-05-05 03:34] LABS: Basophils % (auto) 0.3 % (0.0-2.0); Hemoglobin 13.6 g/dL (12.2-16.2); Lymphocytes # (auto) 1.1 10 ^3/uL (0.4-5.4); Lymphocytes % (auto) 5.9 % (10.0-50.0); Mean Corpuscular Hemoglobin 25.8 pg (28.0-32.0); Mean Corpuscular Hgb Conc. 30.9 g/dL (32.0-36.0); Mean Corpuscular Volume 83.2 fL (80.0-100.0); Monocytes # (auto) 0.9 10 ^3/uL (0-1.3); Monocytes % (auto) 4.7 % (0.0-12.0); Neutrophils # (auto) 16.2 10 ^3/uL (1.6-8.6); Nucleated Red Blood Cells % 0.2 %; Platelet Count (auto) 317 10^3/uL (140-450); Red Blood Cells 5.27 10^6/uL (4.0-5.20); White Blood Cell 18.2 10^3/uL (4.4-10.8)
[2020-05-05] MEDS: ONDANSETRON HCL 4 MG/2 ML VIAL IV PRN ×2 (04:36→11:23)
[2020-05-05] MEDS: ACETAMINOPHEN 500 MG TAB PO PRN (04:38)
[2020-05-05] MEDS: SODIUM CHLOR 0.9% PF (SALINE LOCK) 10ML VIAL/SYR IV SCH ×3 (05:30→21:58)
[2020-05-05] MEDS: FUROSEMIDE 40 MG/4 ML VIAL IV SCH ×2 (05:31→17:35)
[2020-05-05 05:56] LABS: Albumin 2.6 g/dL (3.4-5.0); Calcium 9.4 mg/dL (8.5-10.1); Magnesium 2.5 mg/dL (1.6-2.6); Potassium 4.1 mmol/L (3.5-5.1)
[2020-05-05 06:05] LABS: BUN/Creatinine Ratio 36.4; Bilirubin, Total 0.3 mg/dL (0.2-1.0); CRP High Sensitivity 4.36 mg/dL (< 0.3); Phosphorus 3.1 mg/dL (2.5-4.90); Total Protein 7.4 g/dL (6.4-8.2)
[2020-05-05] MEDS: ALBUTEROL SULF 2.5 MG/0.5ML(0.5%) NEB SOLN NEB SCH ×2 (06:20→13:35)
[2020-05-05] MEDS: BUDESONIDE (INHALATION) 0.5 MG/2 ML NEB NEB SCH (06:20)
[2020-05-05] MEDS: ENSURE CLEAR Mixed Berry 8oz Carton PO SCH ×3 (08:00→17:35)
[2020-05-05] MEDS: DexAMETHasone SOD PHOS 10MG/1ML VIAL INJ IV SCH (09:28)
[2020-05-05] MEDS: ZINC SULFATE 220mg CAP or TAB PO SCH (09:29)
[2020-05-05] MEDS: ENOXAPARIN SOD 120 MG/0.8 ML SYRINGE SC SCH ×2 (09:29→21:58)
[2020-05-05] MEDS: MULTIPLE VITAMIN TAB PO SCH (09:29)
[2020-05-05] MEDS: ASCORBIC ACID 1,000 MG TAB PO SCH (09:29)
[2020-05-05] MEDS: PANTOPRAZOLE 40 MG/10 ML VIAL INJ IV SCH (09:29)
[2020-05-05] MEDS: CHOLECALCIFEROL (VITD3) 2,000 UNIT CAP PO SCH (09:29)
[2020-05-05] MEDS: METOPROLOL TARTRATE 25 MG TAB PO SCH ×2 (09:31→22:00)
[2020-05-05] MEDS: AZITHROMYCIN 500MG/ 250ML 250 ML IV SCH (09:31)
[2020-05-05] MEDS ORDERED: AZITHROMYCIN 500MG/ 250ML 250 ML IV SCH (12:30)
[2020-05-05] MEDS: ALPRAZolam 0.5 MG TAB PO PRN (15:15)
[2020-05-05] MEDS: PIPERACILLIN-TAZOB 3.375GM 100 ML IV SCH ×2 (17:35→23:50)
[2020-05-05] MEDS ORDERED: PPN PER PHARMACY IV NR ×8 (20:00)
[2020-05-06] VITALS (40 sets, daily range): BP systolic 66–145; BP diastolic 4–103
[2020-05-06] MEDS: SODIUM CHLOR 0.9% PF (SALINE LOCK) 10ML VIAL/SYR IV SCH ×3 (05:18→22:10)
[2020-05-06] MEDS: ACCU-CHEK COMFORT CURVE STRIP VI SCH ×3 (05:18→20:33)
[2020-05-06] MEDS: PIPERACILLIN-TAZOB 3.375GM 100 ML IV SCH ×3 (05:18→18:00)
[2020-05-06] MEDS: InsuLIN REG 1unit/0.01ml Soln (100units/ml) SC SCH ×3 (05:19→20:34)
[2020-05-06] MEDS: FUROSEMIDE 40 MG/4 ML VIAL IV SCH ×3 (05:20→22:10)
[2020-05-06] MEDS: ALBUTEROL SULF 2.5 MG/0.5ML(0.5%) NEB SOLN NEB SCH ×3 (06:07→22:28)
[2020-05-06] MEDS: BUDESONIDE (INHALATION) 0.5 MG/2 ML NEB NEB SCH ×2 (06:07→14:34)
[2020-05-06] MEDS: ENSURE CLEAR Mixed Berry 8oz Carton PO SCH ×3 (08:00→18:00)
[2020-05-06] MEDS: DexAMETHasone SOD PHOS 10MG/1ML VIAL INJ IV SCH (11:10)
[2020-05-06] MEDS: ZINC SULFATE 220mg CAP or TAB PO SCH (11:10)
[2020-05-06] MEDS: AZITHROMYCIN 500MG/ 250ML 250 ML IV SCH (11:10)
[2020-05-06] MEDS: PANTOPRAZOLE 40 MG/10 ML VIAL INJ IV SCH (11:10)
[2020-05-06] MEDS: METOPROLOL TARTRATE 25 MG TAB PO SCH ×2 (11:11→22:00)
[2020-05-06] MEDS: CHOLECALCIFEROL (VITD3) 2,000 UNIT CAP PO SCH (11:12)
[2020-05-06] MEDS: MULTIPLE VITAMIN TAB PO SCH (11:12)
[2020-05-06] MEDS: ASCORBIC ACID 1,000 MG TAB PO SCH (11:12)
[2020-05-06] MEDS: ENOXAPARIN SOD 120 MG/0.8 ML SYRINGE SC SCH ×2 (11:13→22:11)
[2020-05-06] MEDS: ONDANSETRON HCL 4 MG/2 ML VIAL IV PRN (12:00)
[2020-05-06 15:50] LABS: Hematocrit 43.5 % (36.0-46.0); Mean Corpuscular Hemoglobin 26.3 pg (28.0-32.0); Mean Corpuscular Hgb Conc. 32.1 g/dL (32.0-36.0); Mean Corpuscular Volume 81.9 fL (80.0-100.0)
[2020-05-06 15:51] LABS: Platelet Count (auto) 334 10^3/uL (140-450); Red Blood Cells 5.31 10^6/uL (4.0-5.20); Red Cell Distribution Width 18.3 % (11.8-14.3); White Blood Cell 20.7 10^3/uL (4.4-10.8)
[2020-05-06 15:57] LABS: Basophils % (manual) 0 (0.0-2.0); Blast Cells 0; Myelocytes % 0; Promyelocytes % 0; Reactive Lymphocytes 0
[2020-05-06 16:03] LABS: Albumin 2.5 g/dL (3.4-5.0); Calcium 8.7 mg/dL (8.5-10.1); Magnesium 2.3 mg/dL (1.6-2.6); Potassium 3.6 mmol/L (3.5-5.1)
[2020-05-06 16:12] LABS: BUN/Creatinine Ratio 30.3; Bilirubin, Total 0.6 mg/dL (0.2-1.0); CRP High Sensitivity 6.64 mg/dL (< 0.3); Phosphorus 3.4 mg/dL (2.5-4.90); Total Protein 7.7 g/dL (6.4-8.2)
[2020-05-06] MEDS ORDERED: POTASSIUM CHL 20MEQ/100ML 100 ML IV ONE (17:00)
[2020-05-06] MEDS ORDERED: ETOMIDATE (2MG/ML) 20ML VIAL IV ONE (18:04)
[2020-05-06] MEDS ORDERED: SUCCINYLCHOLINE CHLORIDE 20 MG/ML 10ML VIAL IV ONE ×2 (18:06→19:35)
[2020-05-06] MEDS ORDERED: fentaNYL Drip 2500mCg/250mlNS 250 ML IV ONE (18:08)
[2020-05-06] MEDS ORDERED: MIDAZOLAM DRIP 50 mg/50mL 50 ML IV ONE ×2 (18:09→20:00)
[2020-05-06] MEDS ORDERED: NOREPINEPHRINE 8 MG/250ML KIT 250 ML IV ONE (18:14)
[2020-05-06 18:35] LABS: Band Neutrophils % (manual) 7; Eosinophils % (manual) 1 (0-7); Lymphocytes % (manual) 5 (10.0-50.0); Metamyelocytes % 4; Monocytes % (manual) 6 (0-12)
[2020-05-06] MEDS: MIDAZOLAM DRIP 50 mg/50mL 50 ML IV SCH (19:00)
[2020-05-06] MEDS: fentaNYL Drip 2500mCg/250mlNS 250 ML IV SCH (19:00)
[2020-05-06] MEDS ORDERED: PROPOFOL 100 ML IV ONE (19:27)
[2020-05-06] MEDS: PROPOFOL 100 ML IV SCH (19:30)
[2020-05-06] MEDS ORDERED: PPN PER PHARMACY IV NR ×8 (20:00)
[2020-05-06] MEDS: ATRACURIUM BESYLATE 1,000 MG in D5W 5% 150 ML IV SCH (20:00)
[2020-05-06] MEDS: NOREPINEPHRINE 8 MG/250ML KIT 250 ML IV SCH (20:15)
[2020-05-06] MEDS ORDERED: PHENYLEPHRINE IV 250 ML IV ONE (22:02)
[2020-05-06] MEDS: VASOPRESSIN 50 UNITS in D5W 5% 247.5 ML IV SCH (22:30)
[2020-05-06] MEDS: PHENYLEPHRINE IV 250 ML IV SCH (22:30)
[2020-05-07] VITALS (100 sets, daily range): BP systolic 81–118; BP diastolic 46–84
[2020-05-07] MEDS: ACCU-CHEK COMFORT CURVE STRIP VI SCH ×5 (00:16→22:00)
[2020-05-07] MEDS: PROPOFOL 100 ML IV SCH ×4 (00:16→22:00)
[2020-05-07] MEDS: InsuLIN REG 1unit/0.01ml Soln (100units/ml) SC SCH ×5 (00:16→22:00)
[2020-05-07] MEDS: PIPERACILLIN-TAZOB 3.375GM 100 ML IV SCH ×5 (00:17→23:30)
[2020-05-07] MEDS: MIDAZOLAM DRIP 50 mg/50mL 50 ML IV SCH ×5 (00:18→23:23)
[2020-05-07 04:12] LABS: Hematocrit 43.4 % (36.0-46.0); Hemoglobin 13.7 g/dL (12.2-16.2); Mean Corpuscular Hemoglobin 26.5 pg (28.0-32.0); Mean Corpuscular Hgb Conc. 31.7 g/dL (32.0-36.0); Mean Corpuscular Volume 83.6 fL (80.0-100.0); Platelet Count (auto) 439 10^3/uL (140-450); Red Blood Cells 5.19 10^6/uL (4.0-5.20)
[2020-05-07 04:20] LABS: Basophils % (manual) 0 (0.0-2.0); Blast Cells 0; Eosinophils % (manual) 0 (0-7); Metamyelocytes % 0; Myelocytes % 0; Promyelocytes % 0; Reactive Lymphocytes 0; White Blood Cell 39.6 10^3/uL (4.4-10.8)
[2020-05-07] MEDS: FUROSEMIDE 40 MG/4 ML VIAL IV SCH (04:49)
[2020-05-07] MEDS: SODIUM CHLOR 0.9% PF (SALINE LOCK) 10ML VIAL/SYR IV SCH ×3 (04:50→22:00)
[2020-05-07] MEDS: PHENYLEPHRINE IV 250 ML IV SCH ×3 (04:52→18:45)
[2020-05-07 05:06] LABS: Alanine Aminotransferase 123 U/L (13-56); Alkaline Phosphatase 148 U/L (45-117); Anion Gap 14 (5-15); Aspartate Aminotransferase 59 U/L (15-37); BUN/Creatinine Ratio 15.8; Blood Urea Nitrogen 41 mg/dL (7-18); Calcium 8.6 mg/dL (8.5-10.1); Carbon Dioxide 27 mmol/L (21-32); Chloride 90 mmol/L (98-107); GFR African American 26 mL/min; GFR Non-African American 22 mL/min; Glucose 230 mg/dL (74-106); Potassium 4.3 mmol/L (3.5-5.1); Sodium 131 mmol/L (136-145)
[2020-05-07 05:07] LABS: Albumin 2.6 g/dL (3.4-5.0); Bilirubin, Total 0.9 mg/dL (0.2-1.0); CRP High Sensitivity 9.43 mg/dL (< 0.3); Magnesium 2.5 mg/dL (1.6-2.6); Phosphorus 8.2 mg/dL (2.5-4.90); Total Protein 7.7 g/dL (6.4-8.2)
[2020-05-07] MEDS: fentaNYL Drip 2500mCg/250mlNS 250 ML IV SCH (05:11)
[2020-05-07] MEDS: NOREPINEPHRINE 8 MG/250ML KIT 250 ML IV SCH (05:13)
[2020-05-07] MEDS: ALBUTEROL SULF 2.5 MG/0.5ML(0.5%) NEB SOLN NEB SCH ×3 (06:00→23:01)
[2020-05-07 06:39] LABS: Band Neutrophils % (manual) 9; Lymphocytes % (manual) 7 (10.0-50.0); Monocytes % (manual) 7 (0-12)
[2020-05-07] MEDS: BUDESONIDE (INHALATION) 0.5 MG/2 ML NEB NEB SCH ×2 (07:06→23:01)
[2020-05-07] MEDS: ENSURE CLEAR Mixed Berry 8oz Carton PO SCH ×2 (08:00→11:23)
[2020-05-07] MEDS: METOPROLOL TARTRATE 25 MG TAB PO SCH ×2 (10:00→22:00)
[2020-05-07] MEDS: AZITHROMYCIN 500MG/ 250ML 250 ML IV SCH (10:24)
[2020-05-07] MEDS: PANTOPRAZOLE 40 MG/10 ML VIAL INJ IV SCH (10:24)
[2020-05-07] MEDS: ZINC SULFATE 220mg CAP or TAB PO SCH (10:24)
[2020-05-07] MEDS: DexAMETHasone SOD PHOS 10MG/1ML VIAL INJ IV SCH (10:24)
[2020-05-07] MEDS: MULTIPLE VITAMIN TAB PO SCH (10:25)
[2020-05-07] MEDS: ENOXAPARIN SOD 120 MG/0.8 ML SYRINGE SC SCH ×2 (10:25→22:00)
[2020-05-07] MEDS: ASCORBIC ACID 1,000 MG TAB PO SCH (10:25)
[2020-05-07] MEDS: CHOLECALCIFEROL (VITD3) 2,000 UNIT CAP PO SCH (10:25)
[2020-05-07] MEDS: NOREPINEPHRINE BITARTRATE 16 MG in SODIUM CHL 0.9% 250 ML IV SCH (11:29)
[2020-05-07] MEDS ORDERED: INSULIN LANTUS (GLARGINE) 1 /0.01ml (100units/ml) SC ONE (13:30)
[2020-05-07] MEDS ORDERED: TPN PER PHARMACY 0 ML IV SCH (14:00)
[2020-05-07] MEDS ORDERED: ALBUMIN 25% 100 ML IV ONE (14:45)
[2020-05-07] MEDS ORDERED: DEXTROSE (50%) 50ML SYRG IV PRN (15:00)
[2020-05-07] MEDS: FUROSEMIDE INJECTION 100 MG in D5W 5% 100 ML IV SCH ×2 (17:36→22:50)
[2020-05-07] MEDS ORDERED: TPN*HIGH CONC* PER PHARMACY IV NR ×7 (20:00)
[2020-05-07] MEDS: VASOPRESSIN 50 UNITS in D5W 5% 247.5 ML IV SCH (22:30)
[2020-05-08] VITALS (98 sets, daily range): BP systolic 75–124; BP diastolic 23–86
[2020-05-08] MEDS: PROPOFOL 100 ML IV SCH ×3 (00:04→06:11)
[2020-05-08] MEDS: PHENYLEPHRINE IV 250 ML IV SCH ×2 (00:41→05:15)
[2020-05-08] MEDS: ATRACURIUM BESYLATE 1,000 MG in D5W 5% 150 ML IV SCH ×2 (01:59→19:15)
[2020-05-08] MEDS: MIDAZOLAM DRIP 50 mg/50mL 50 ML IV SCH (02:33)
[2020-05-08] MEDS: NOREPINEPHRINE BITARTRATE 16 MG in SODIUM CHL 0.9% 250 ML IV SCH (03:33)
[2020-05-08] MEDS: fentaNYL Drip 2500mCg/250mlNS 250 ML IV SCH (04:16)
[2020-05-08 05:27] LABS: Eosinophils # (auto) 0 10 ^3/uL (0-0.8); Eosinophils % (auto) 0.1 % (0.0-7.0); Hemoglobin 8.9 g/dL (12.2-16.2); Lymphocytes % (auto) 10.9 % (10.0-50.0)
[2020-05-08 05:29] LABS: Basophils # (auto) 0.1 10 ^3/uL (0-0.2); Basophils % (auto) 0.3 % (0.0-2.0); Hematocrit 27.4 % (36.0-46.0); Lymphocytes # (auto) 3.9 10 ^3/uL (0.4-5.4); Mean Corpuscular Hemoglobin 27.1 pg (28.0-32.0); Mean Corpuscular Hgb Conc. 32.3 g/dL (32.0-36.0); Mean Corpuscular Volume 83.9 fL (80.0-100.0); Monocytes % (auto) 5.8 % (0.0-12.0); Neutrophils # (auto) 29.3 10 ^3/uL (1.6-8.6); Neutrophils % (auto) 82.9 % (37.0-80.0); Nucleated Red Blood Cells % 2.2 %; Platelet Count (auto) 344 10^3/uL (140-450); Red Blood Cells 3.27 10^6/uL (4.0-5.20); Red Cell Distribution Width 17.8 % (11.8-14.3)
[2020-05-08 05:30] LABS: Albumin 2.4 g/dL (3.4-5.0); Calcium 7.4 mg/dL (8.5-10.1); Magnesium 2.1 mg/dL (1.6-2.6); Potassium 4.4 mmol/L (3.5-5.1)
[2020-05-08 05:39] LABS: Bilirubin, Total 0.8 mg/dL (0.2-1.0); Total Protein 5.8 g/dL (6.4-8.2)
[2020-05-08 05:42] LABS: White Blood Cell 35.3 10^3/uL (4.4-10.8)
[2020-05-08 05:46] LABS: BUN/Creatinine Ratio 13.7
[2020-05-08] MEDS: BUDESONIDE (INHALATION) 0.5 MG/2 ML NEB NEB SCH ×2 (06:01→20:59)
[2020-05-08] MEDS: ALBUTEROL SULF 2.5 MG/0.5ML(0.5%) NEB SOLN NEB SCH ×3 (06:01→20:59)
[2020-05-08] MEDS: PIPERACILLIN-TAZOB 3.375GM 100 ML IV SCH ×2 (06:14→12:26)
[2020-05-08] MEDS: SODIUM CHLOR 0.9% PF (SALINE LOCK) 10ML VIAL/SYR IV SCH ×3 (06:15→22:00)
[2020-05-08] MEDS: InsuLIN REG 1unit/0.01ml Soln (100units/ml) SC SCH ×4 (06:18→22:00)
[2020-05-08] MEDS: ACCU-CHEK COMFORT CURVE STRIP VI SCH ×4 (06:18→22:00)
[2020-05-08 06:57] LABS: Phosphorus 9.1 mg/dL (2.5-4.90)
[2020-05-08] MEDS ORDERED: SODIUM BICARBONATE 8.4 % INJ 50ML VIAL IV ONE ×4 (08:04→22:00)
[2020-05-08] MEDS: FUROSEMIDE INJECTION 100 MG in D5W 5% 100 ML IV SCH ×3 (09:01→18:30)
[2020-05-08 09:27] LABS: INR 1.2 (0.9-1.15)
[2020-05-08] MEDS: DexAMETHasone SOD PHOS 10MG/1ML VIAL INJ IV SCH (11:50)
[2020-05-08] MEDS: PANTOPRAZOLE 40 MG/10 ML VIAL INJ IV SCH (11:50)
[2020-05-08] MEDS: MULTIPLE VITAMIN TAB PO SCH (11:51)
[2020-05-08] MEDS: ZINC SULFATE 220mg CAP or TAB PO SCH (11:51)
[2020-05-08] MEDS: METOPROLOL TARTRATE 25 MG TAB PO SCH ×2 (11:51→19:30)
[2020-05-08] MEDS: AZITHROMYCIN 500MG/ 250ML 250 ML IV SCH (11:51)
[2020-05-08] MEDS: CHOLECALCIFEROL (VITD3) 2,000 UNIT CAP PO SCH (11:52)
[2020-05-08] MEDS: ASCORBIC ACID 1,000 MG TAB PO SCH (11:52)
[2020-05-08] MEDS: INSULIN LANTUS (GLARGINE) 1 /0.01ml (100units/ml) SC SCH (11:56)
[2020-05-08] MEDS: ENOXAPARIN SOD 120 MG/0.8 ML SYRINGE SC SCH (12:00)
[2020-05-08] MEDS ORDERED: HEPARIN 1,000 UNITS/ml 1ML VIAL ONE (12:48)
[2020-05-08] MEDS ORDERED: HEPARIN SODIUM (PORCINE) 5000 UNITS/ML 1ML VIAL IV ONE (13:00)
[2020-05-08] MEDS ORDERED: LIDOCAINE 2% (LOCAL ANESTH.) PF 5ml SDV ONE (13:40)
[2020-05-08] MEDS: PHENYLEPHRINE INJ 40 MG in SODIUM CHL 0.9% 250 ML IV SCH (15:45)
[2020-05-08] MEDS ORDERED: PHENYLEPHRINE IV 250 ML IV ONE (15:49)
[2020-05-08 15:59] LABS: Hematocrit 20.1 % (36.0-46.0); Mean Corpuscular Hemoglobin 28.3 pg (28.0-32.0); Mean Corpuscular Hgb Conc. 32.7 g/dL (32.0-36.0); Mean Corpuscular Volume 86.8 fL (80.0-100.0); Platelet Count (auto) 291 10^3/uL (140-450); Red Blood Cells 2.31 10^6/uL (4.0-5.20); Red Cell Distribution Width 18.2 % (11.8-14.3)
[2020-05-08 16:11] LABS: White Blood Cell 42.2 10^3/uL (4.4-10.8)
[2020-05-08 16:12] LABS: Basophils % (manual) 0 (0.0-2.0); Blast Cells 0; Eosinophils % (manual) 0 (0-7); Hemoglobin 6.6 g/dL (12.2-16.2); Promyelocytes % 0; Reactive Lymphocytes 0
[2020-05-08] MEDS: DOPamine 3200MCG/ML 250 ML IV SCH (18:00)
[2020-05-08] MEDS ORDERED: EPINEPHrine HCL 250 ML IV SCH (18:00)
[2020-05-08] MEDS: EPINEPHrine HCL INJECTION 8 MG in D5W 5% 250 ML IV SCH (18:00)
[2020-05-08] MEDS: PIPERACILLIN-TAZOB 2.25GM 50 ML IV SCH (19:17)
[2020-05-08 20:54] LABS: Band Neutrophils % (manual) 9; Lymphocytes % (manual) 6 (10.0-50.0); Metamyelocytes % 5; Monocytes % (manual) 1 (0-12); Myelocytes % 2
[2020-05-08] MEDS: PANTOPRAZOLE 40mg/50ML NS AE 50 ML IV SCH (22:30)
[2020-05-08] MEDS: VASOPRESSIN 50 UNITS in D5W 5% 247.5 ML IV SCH (22:30)
[2020-05-09] VITALS (13 sets, daily range): BP systolic 91–132; BP diastolic 46–68
[2020-05-09] MEDS: FUROSEMIDE INJECTION 100 MG in D5W 5% 100 ML IV SCH ×4 (00:30→16:02)
[2020-05-09] MEDS: EPINEPHrine HCL INJECTION 8 MG in D5W 5% 250 ML IV SCH ×2 (01:30→14:59)
[2020-05-09 01:48] LABS: Hematocrit 27.1 % (36.0-46.0); Hemoglobin 8.7 g/dL (12.2-16.2); Mean Corpuscular Hemoglobin 27.4 pg (28.0-32.0); Mean Corpuscular Volume 85.7 fL (80.0-100.0); Platelet Count (auto) 186 10^3/uL (140-450); Red Blood Cells 3.16 10^6/uL (4.0-5.20); Red Cell Distribution Width 17.1 % (11.8-14.3)
[2020-05-09 01:50] LABS: White Blood Cell 34.9 10^3/uL (4.4-10.8)
[2020-05-09 01:52] LABS: Basophils % (manual) 0 (0.0-2.0); Blast Cells 0; Eosinophils % (manual) 0 (0-7); Metamyelocytes % 0; Myelocytes % 0; Promyelocytes % 0; Reactive Lymphocytes 0
[2020-05-09 02:05] LABS: Alanine Aminotransferase 398 U/L (13-56); Albumin 1.8 g/dL (3.4-5.0); Anion Gap 19 (5-15); Aspartate Aminotransferase 354 U/L (15-37); BUN/Creatinine Ratio 11.3; Blood Urea Nitrogen 64 mg/dL (7-18); Carbon Dioxide 21 mmol/L (21-32); Chloride 88 mmol/L (98-107); GFR African American 11 mL/min; GFR Non-African American 9 mL/min; Glucose 296 mg/dL (74-106); Magnesium 1.8 mg/dL (1.6-2.6); Potassium 4.8 mmol/L (3.5-5.1); Sodium 128 mmol/L (136-145)
[2020-05-09 02:07] LABS: Alkaline Phosphatase 72 U/L (45-117); Bilirubin, Total 0.7 mg/dL (0.2-1.0); Total Protein 4.9 g/dL (6.4-8.2)
[2020-05-09] MEDS: PANTOPRAZOLE 40mg/50ML NS AE 50 ML IV SCH ×3 (02:30→12:30)
[2020-05-09] MEDS ORDERED: PHENYLEPHRINE IV 250 ML IV ONE (03:09)
[2020-05-09 03:11] LABS: Calcium 5.7 mg/dL (8.5-10.1); Phosphorus 11.7 mg/dL (2.5-4.90)
[2020-05-09] MEDS ORDERED: PHENYLEPHRINE HCL 10 MG/ML VL ONE (03:11)
[2020-05-09] MEDS: DOPamine 3200MCG/ML 250 ML IV SCH ×2 (03:23→13:13)
[2020-05-09 03:41] LABS: Band Neutrophils % (manual) 10; Lymphocytes % (manual) 5 (10.0-50.0); Monocytes % (manual) 4 (0-12)
[2020-05-09] MEDS: ACETAMINOPHEN 500 MG TAB PO PRN (05:00)
[2020-05-09] MEDS: SODIUM CHLOR 0.9% PF (SALINE LOCK) 10ML VIAL/SYR IV SCH ×2 (05:20→13:13)
[2020-05-09] MEDS: PIPERACILLIN-TAZOB 2.25GM 50 ML IV SCH ×3 (05:25→12:05)
[2020-05-09] MEDS: InsuLIN REG 1unit/0.01ml Soln (100units/ml) SC SCH ×2 (05:42→11:53)
[2020-05-09] MEDS: ACCU-CHEK COMFORT CURVE STRIP VI SCH ×2 (05:42→11:53)
[2020-05-09] MEDS: BUDESONIDE (INHALATION) 0.5 MG/2 ML NEB NEB SCH (06:30)
[2020-05-09] MEDS: ALBUTEROL SULF 2.5 MG/0.5ML(0.5%) NEB SOLN NEB SCH ×2 (06:30→14:40)
[2020-05-09] MEDS: PHENYLEPHRINE INJ 40 MG in SODIUM CHL 0.9% 250 ML IV SCH ×2 (07:00→15:14)
[2020-05-09] MEDS: MIDAZOLAM DRIP 50 mg/50mL 50 ML IV SCH ×2 (09:13→16:22)
[2020-05-09] MEDS: AZITHROMYCIN 500MG/ 250ML 250 ML IV SCH (09:39)
[2020-05-09] MEDS: DexAMETHasone SOD PHOS 10MG/1ML VIAL INJ IV SCH (09:39)
[2020-05-09] MEDS: ZINC SULFATE 220mg CAP or TAB PO SCH (09:39)
[2020-05-09] MEDS: METOPROLOL TARTRATE 25 MG TAB PO SCH (09:39)
[2020-05-09] MEDS: PANTOPRAZOLE 40 MG/10 ML VIAL INJ IV SCH (09:39)
[2020-05-09] MEDS: MULTIPLE VITAMIN TAB PO SCH (09:40)
[2020-05-09] MEDS: CHOLECALCIFEROL (VITD3) 2,000 UNIT CAP PO SCH (09:40)
[2020-05-09] MEDS: ASCORBIC ACID 1,000 MG TAB PO SCH (09:40)
[2020-05-09] MEDS: fentaNYL Drip 2500mCg/250mlNS 250 ML IV SCH (10:45)
[2020-05-09] MEDS: INSULIN LANTUS (GLARGINE) 1 /0.01ml (100units/ml) SC SCH (10:47)
[2020-05-09] MEDS: NOREPINEPHRINE BITARTRATE 16 MG in SODIUM CHL 0.9% 250 ML IV SCH (12:24)
[2020-05-09] MEDS: VASOPRESSIN 50 UNITS in D5W 5% 247.5 ML IV SCH (14:17)
[2020-05-09] MEDS ORDERED: SODIUM BICARBONATE 8.4% INJ 50ML SYRINGE IV ONE (20:31)
[2020-05-09] MEDS ORDERED: EPINEPHrine HCL 1 MG/10 ML SYRG IV ONE (20:31)
[2020-05-09] MEDS ORDERED: CALCIUM CHLOR(10%) 100MG/ML 10ML SYRINGE IV ONE (20:31)
== END 2020-05-09 17:11 | disposition expired | DRG 720 ==
LOC: ER 19:51 → TELE 04-24 00:07 → DOU IN ICU 04-25 23:22
PROVIDERS: ADMIT Nurse Practitioner Family; ATTEND Internal Medicine
PROC: XW13325 Transfusion of Convalescent Plasma (Nonautologous) into Peripheral Vein, Percutaneous Approach, New Technology Group 5 (ICD-10-PCS; principal; 2020-04-24)
PROC: 5A09557 Assistance with Respiratory Ventilation, Greater than 96 Consecutive Hours, Continuous Positive Airway Pressure (ICD-10-PCS; 2020-04-25)
PROC: XW033E5 Introduction of Remdesivir Anti-infective into Peripheral Vein, Percutaneous Approach, New Technology Group 5 (ICD-10-PCS; 2020-04-26)
PROC: 06HY33Z Insertion of Infusion Device into Lower Vein, Percutaneous Approach (ICD-10-PCS; 2020-05-06)
PROC: 5A1945Z Respiratory Ventilation, 24-96 Consecutive Hours (ICD-10-PCS; 2020-05-06)
PROC: 0BH17EZ Insertion of Endotracheal Airway into Trachea, Via Natural or Artificial Opening (ICD-10-PCS; 2020-05-06)
PROC: B54BZZA Ultrasonography of Right Lower Extremity Veins, Guidance (ICD-10-PCS; 2020-05-06)
PROC: 30233K1 Transfusion of Nonautologous Frozen Plasma into Peripheral Vein, Percutaneous Approach (ICD-10-PCS; 2020-05-08)
PROC: 30233N1 Transfusion of Nonautologous Red Blood Cells into Peripheral Vein, Percutaneous Approach (ICD-10-PCS; 2020-05-08)
PROC: 5A12012 Performance of Cardiac Output, Single, Manual (ICD-10-PCS; 2020-05-09)
DX: A41.89 Other specified sepsis (principal); U07.1 COVID-19; J96.01 Acute respiratory failure with hypoxia; J12.89 Other viral pneumonia; I10 Essential (primary) hypertension; E66.01 Morbid (severe) obesity due to excess calories; Z68.43 Body mass index [BMI] 50.0-59.9, adult; K21.9 Gastro-esophageal reflux disease without esophagitis; D64.9 Anemia, unspecified; E87.1 Hypo-osmolality and hyponatremia; H57.04 Mydriasis; J93.9 Pneumothorax, unspecified; N17.0 Acute kidney failure with tubular necrosis; R65.21 Severe sepsis with septic shock; E11.65 Type 2 diabetes mellitus with hyperglycemia; Z82.49 Family history of ischemic heart disease and other diseases of the circulatory system; Z83.49 Family history of other endocrine, nutritional and metabolic diseases; Z87.442 Personal history of urinary calculi; Z87.891 Personal history of nicotine dependence; J91.8 Pleural effusion in other conditions classified elsewhere; E44.1 Mild protein-calorie malnutrition
CPT/HCPCS: 36415; 36600; 71045; 80048; 80053; 81001; 82040; 82728; 82805; 82962; 83036; 83605; 83615; 83735; 83880; 84100; 84478; 84484; 84702; 85007; 85025; 85027; 85379; 85610; 85730; 86141; 86850; 86900; 86901; 86920; 87040; 87070; 87077; 87086; 87088; 87205; 93005; 93970; 94002; 94003; 94640; 94660; 96365; C9113; G0378; J0171; J0330; J1100; J1265; J1815; J2001; J2250; J2405; J2543; J2704; J3480; J3490; J7060; J7131; P9047